=== PATIENT | female | born 1995 | race Asian ===

== ENCOUNTER 2019-11-28 05:50 | Emergency (ER) | payer SELFPAY ==
[~2019-11-28] VITALS: Ht 160 cm; Wt 45.4 kg
[2019-11-28] MEDS ORDERED: LORAZEPAM INJ 2 MG/ML VIAL ONE (05:59)
[2019-11-28] MEDS ORDERED: LEVETIRACETAM (500MG) 500 MG in IV NS 0.9% 100 ML IV ONE (06:00)
--- NOTE | 2019-11-28 06:00 | NUR ---
PT BIBRA FROM HOME C/O SEIZURE. PER REPORT 1ST SEIZURE WAS WITNESSED BY S/O LASTING ABOUT 20 SECONDS AND 2ND SEIZURE WITNESSED BY EMS BUSINESS CONTINUITY CONSULTANT. PT POST ICTAL UPON ARRIVING TO THE ER. PT AAOX2, VSS, RESPIRATIONS EVEN AND UNLABORED ON RA W/ NAD NOTED. 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 SEIZURE PRECAUTIONS IMPLEMENTED
[2019-11-28 06:14] LABS: BASOPHILS # (AUTO) 0.1 /CMM (0.0-0.2); BASOPHILS % (AUTO) 0.9 % (0.0-2.0); HEMATOCRIT 37 % (33-45); HEMOGLOBIN 11.8 g/dL (11.5-14.8); LYMPHOCYTES # (AUTO) 2.7 /CMM (0.8-4.8); LYMPHOCYTES % (AUTO) 21.8 % (20.0-44.0); MEAN CORPUSCULAR HGB CONC 32 g/dl (31.0-36.0); MEAN CORPUSCULAR VOLUME 92 fL (82-100); MONOCYTES # (AUTO) 0.8 /CMM (0.1-1.30); MONOCYTES % (AUTO) 6.5 % (2.0-12.0); NEUTROPHILS # (AUTO) 8.6 /CMM (1.8-8.9); NEUTROPHILS % (AUTO) 69.8 % (43.0-81.0); PLATELET COUNT (AUTO) 319 /CMM (150-450); RED BLOOD CELL COUNT(AUTO) 4.07 MIL/uL (4.0-5.2); WHITE BLOOD COUNT (AUTO) 12.3 K/uL (4.3-11.0)
[2019-11-28] MEDS ORDERED: LEVETIRACETAM (500MG) 500 MG/5 ML VIAL IV ONE ×2 (06:15→06:19)
--- NOTE | 2019-11-28 06:15 | NUR ---
URINE COLLECTED AND SENT TO LAB
--- NOTE | 2019-11-28 06:15 | NUR ---
BLOOD COLLECTED AND SENT TO LAB
--- NOTE | 2019-11-28 06:15 | NUR ---
PT MEDICATED ORDERED
[2019-11-28 06:24] LABS: CALCIUM, SERUM 8.4 mg/dL (8.5-10.1); CARBON DIOXIDE 16 mmol/L (21-32); CHLORIDE 99 mmol/L (98-107); GLUCOSE 137 mg/dL (74-106); POTASSIUM 3.8 mmol/L (3.5-5.1); SODIUM SERUM 135 mmol/L (136-145); UREA NITROGEN, BLOOD 10 mg/dL (7-18)
[2019-11-28] MEDS: LORAZEPAM INJ 2 MG/ML VIAL IV ONE ×2 (06:30→07:38)
[2019-11-28] MEDS: IV NS 0.9% 1,000 ML BAG IV ONE (06:30)
[2019-11-28 06:31] LABS: ALANINE AMINOTRANSFERASE 11 U/L (12-78); ALBUMIN 3.6 g/dL (3.4-5.0); ALCOHOL, BLOOD < 3 mg/dL (0-0); ALKALINE PHOSPHATASE 48 U/L (46-116); ASPARTATE AMINOTRANSFERASE 12 U/L (15-37); BILIRUBIN,DIRECT 0.1 mg/dL (0.0-0.2); BILIRUBIN,TOTAL 0.1 mg/dL (0.2-1.0); TOTAL PROTEIN, SERUM 7.7 g/dL (6.4-8.2)
[2019-11-28] MEDS: LEVETIRACETAM (500MG) 1,000 MG in IV NS 0.9% 100 ML IV SCH (06:31)
[2019-11-28 07:06] LABS: ACETAMINOPHEN 0 ug/ml (10-30); SALICYLATE 1.3 mg/dL (2.8-20.0)
--- NOTE | 2019-11-28 07:22 | NUR ---
RECEIVED ENDORSEMENT FROM MERRY AMAYA FOR ZANDRA. PATIENT IN BED ASLEEP, EASILY AROUSED BY VOICE. HOOKED TO MONITOR. KEPT WARM, SAFE AND COMFORTABLE. WILL CONTINUE TO MONITOR.
[2019-11-28 07:34] LABS: CREATINE KINASE, TOTAL 111 U/L (26-192)
--- NOTE | 2019-11-28 10:36 | NUR ---
PATIENT ABLE TO AMBULATE WITH STEADY GAIT. MD [place]
--- NOTE | 2019-11-28 10:52 | NUR ---
IV removed. Catheter intact and site benign. Pressure and 4x4 applied to site. No bleeding noted.Patient discharged to home in stable condition. Written and verbal after care instructions given. Patient verbalizes understanding of instruction. Patient assisted to waiting room where father is waiting.
[2019-11-28 10:53] VITALS: BP 100/63
== END 2019-11-28 10:53 | disposition home or self-care (01) ==
LOC: ER 05:50
DX: R56.9 Unspecified convulsions (principal); R41.82 Altered mental status, unspecified
CPT/HCPCS: 36415; 70450; 80048; 80076; 80305; 80307; 80329; 82550; 83605 ×2; 84703; 85025; 93005; 96365; 96375; 99285; G0480; J1953 ×2; J2060; J7030 ×2